=== PATIENT | female | born 1945 | race Two or more races ===

== ENCOUNTER 2018-10-24 07:15 | Outpatient (CLI) | payer OTHER ==
[2018-10-26] MEDS ORDERED: ATACAND32 MG PO (07:53)
[2018-10-26] MEDS ORDERED: LIPITOR40 MG PO (07:53)
== END 2018-10-24 07:20 | disposition home or self-care (01) ==
LOC: EDBD 07:15 → LAB 07:15
DX: D68.8 Other specified coagulation defects (principal); Z01.818 Encounter for other preprocedural examination

== ENCOUNTER 2018-10-26 10:35 | Day surgery (SDC) | payer OTHER ==
[~2018-10-26 10:35] MED LIST: ATACAND32 MG PO; LIPITOR40 MG PO
[2018-10-26] MEDS ORDERED: OXYC1TAB9 PO (16:41)
[2018-10-26] MEDS ORDERED: DUI500 PO (16:41)
== END 2018-10-26 19:35 | disposition home or self-care (01) ==
LOC: CIR.AMB 10:35
DX: S52.531A Colles' fracture of right radius, initial encounter for closed fracture (principal)
CPT/HCPCS: 25609; C1776